=== PATIENT | female | born 1950 ===

== ENCOUNTER 2019-10-17 11:13 | Outpatient (CLI) | payer OTHER | END 2019-10-17 11:15 | disposition home or self-care (01) | LOC: MAMO-SONO 11:13 | DX: Z12.31 Encounter for screening mammogram for malignant neoplasm of breast (principal); Z87.898 Personal history of other specified conditions; M54.5 Low back pain; Z01.810 Encounter for preprocedural cardiovascular examination; E03.8 Other specified hypothyroidism; E78.89 Other lipoprotein metabolism disorders; E11.51 Type 2 diabetes mellitus with diabetic peripheral angiopathy without gangrene; E55.9 Vitamin D deficiency, unspecified; E66.8 Other obesity; G62.89 Other specified polyneuropathies; E11.42 Type 2 diabetes mellitus with diabetic polyneuropathy; I11.9 Hypertensive heart disease without heart failure ==

== ENCOUNTER → 2019-10-22 06:54 | Outpatient (CLI) | payer OTHER | END | disposition home or self-care (01) | LOC: LAB 06:54 | DX: E03.8 Other specified hypothyroidism (principal); M54.5 Low back pain; Z01.810 Encounter for preprocedural cardiovascular examination; E78.89 Other lipoprotein metabolism disorders; E11.51 Type 2 diabetes mellitus with diabetic peripheral angiopathy without gangrene; E55.9 Vitamin D deficiency, unspecified; E66.8 Other obesity; G62.89 Other specified polyneuropathies; E11.42 Type 2 diabetes mellitus with diabetic polyneuropathy; I11.9 Hypertensive heart disease without heart failure; F41.8 Other specified anxiety disorders; Z12.11 Encounter for screening for malignant neoplasm of colon ==

== ENCOUNTER 2019-10-29 09:20 | Outpatient (CLI) | payer OTHER | END 2019-10-29 09:26 | disposition home or self-care (01) | LOC: NUCLEAR 09:20 | PROVIDERS: ATTEND Internal Medicine | DX: M81.0 Age-related osteoporosis without current pathological fracture (principal); E03.8 Other specified hypothyroidism; I10 Essential (primary) hypertension; M54.5 Low back pain; Z01.810 Encounter for preprocedural cardiovascular examination; E78.89 Other lipoprotein metabolism disorders; E11.51 Type 2 diabetes mellitus with diabetic peripheral angiopathy without gangrene; E55.9 Vitamin D deficiency, unspecified; E11.9 Type 2 diabetes mellitus without complications; E66.8 Other obesity; G62.89 Other specified polyneuropathies; E11.42 Type 2 diabetes mellitus with diabetic polyneuropathy; I11.9 Hypertensive heart disease without heart failure ==

== ENCOUNTER 2019-12-19 08:54 | Outpatient (CLI) | payer OTHER | END 2019-12-19 08:55 | disposition home or self-care (01) | LOC: SONOGRAMA 08:54 | PROVIDERS: ATTEND Internal Medicine Endocrinology, Diabetes & Metabolism | DX: E04.1 Nontoxic single thyroid nodule (principal) ==

== ENCOUNTER → 2020-07-20 06:40 | Outpatient (CLI) | payer OTHER | END | disposition home or self-care (01) | LOC: LAB 06:40 | PROVIDERS: ATTEND Internal Medicine Endocrinology, Diabetes & Metabolism | DX: E03.8 Other specified hypothyroidism (principal); E11.65 Type 2 diabetes mellitus with hyperglycemia; E55.9 Vitamin D deficiency, unspecified; D64.89 Other specified anemias; E78.2 Mixed hyperlipidemia; Z12.11 Encounter for screening for malignant neoplasm of colon; C18.9 Malignant neoplasm of colon, unspecified; C53.8 Malignant neoplasm of overlapping sites of cervix uteri; C50.919 Malignant neoplasm of unspecified site of unspecified female breast ==

== ENCOUNTER 2020-10-21 06:36 | Outpatient (CLI) | payer OTHER | END 2020-10-21 06:44 | disposition home or self-care (01) | LOC: LAB 06:36 | PROVIDERS: ATTEND Internal Medicine | DX: I10 Essential (primary) hypertension (principal); M54.5 Low back pain; E78.89 Other lipoprotein metabolism disorders; E55.9 Vitamin D deficiency, unspecified; E66.8 Other obesity; G62.89 Other specified polyneuropathies; I11.9 Hypertensive heart disease without heart failure; F41.8 Other specified anxiety disorders; G47.09 Other insomnia; Z12.11 Encounter for screening for malignant neoplasm of colon; E78.2 Mixed hyperlipidemia; D64.89 Other specified anemias; D51.0 Vitamin B12 deficiency anemia due to intrinsic factor deficiency; C18.0 Malignant neoplasm of cecum; R80.8 Other proteinuria; R07.89 Other chest pain; R10.84 Generalized abdominal pain ==

== ENCOUNTER → 2020-12-01 08:55 | Outpatient (CLI) | payer OTHER | END | disposition home or self-care (01) | LOC: RAD 08:55 | PROVIDERS: ATTEND Internal Medicine | DX: I10 Essential (primary) hypertension (principal); M54.5 Low back pain; E78.89 Other lipoprotein metabolism disorders; E55.9 Vitamin D deficiency, unspecified; E66.8 Other obesity; G62.89 Other specified polyneuropathies ==

== ENCOUNTER 2021-02-02 06:39 | Outpatient (CLI) | payer OTHER | END 2021-02-02 06:40 | disposition home or self-care (01) | LOC: LAB 06:39 | PROVIDERS: ATTEND Internal Medicine | DX: I10 Essential (primary) hypertension (principal); M54.5 Low back pain; E78.89 Other lipoprotein metabolism disorders; E55.9 Vitamin D deficiency, unspecified; E66.8 Other obesity; G62.89 Other specified polyneuropathies ==

== ENCOUNTER 2021-06-10 06:44 | Outpatient (CLI) | payer OTHER | END 2021-06-10 06:50 | disposition home or self-care (01) | LOC: LAB 06:44 | PROVIDERS: ATTEND Internal Medicine | DX: I10 Essential (primary) hypertension (principal); M54.59 Other low back pain; E78.89 Other lipoprotein metabolism disorders; E55.9 Vitamin D deficiency, unspecified; E66.8 Other obesity; G62.89 Other specified polyneuropathies; C82.11 Follicular lymphoma grade II, lymph nodes of head, face, and neck; E03.8 Other specified hypothyroidism; D64.89 Other specified anemias; E11.65 Type 2 diabetes mellitus with hyperglycemia; E78.2 Mixed hyperlipidemia; N39.0 Urinary tract infection, site not specified ==

== ENCOUNTER 2021-06-29 08:29 | Outpatient (CLI) | payer OTHER | END 2021-06-29 08:30 | disposition home or self-care (01) | LOC: MAMO-SONO 08:29 | PROVIDERS: ATTEND Internal Medicine Endocrinology, Diabetes & Metabolism | DX: N64.4 Mastodynia (principal) ==

== ENCOUNTER 2021-10-06 06:47 | Outpatient (CLI) | payer OTHER | END 2021-10-06 07:11 | disposition home or self-care (01) | LOC: LAB 06:47 | PROVIDERS: ATTEND Internal Medicine Endocrinology, Diabetes & Metabolism | DX: Z12.11 Encounter for screening for malignant neoplasm of colon (principal); E11.69 Type 2 diabetes mellitus with other specified complication; D64.9 Anemia, unspecified; C18.9 Malignant neoplasm of colon, unspecified ==

== ENCOUNTER 2021-10-17 15:22 | Outpatient (CLI) | payer OTHER | END 2021-10-17 15:26 | disposition home or self-care (01) | LOC: LAB 15:22 | PROVIDERS: ATTEND Specialist | DX: Z12.9 Encounter for screening for malignant neoplasm, site unspecified (principal) ==

== ENCOUNTER 2021-12-28 06:38 | Outpatient (CLI) | payer OTHER | END 2021-12-28 14:52 | disposition home or self-care (01) | LOC: LAB 06:38 | PROVIDERS: ATTEND Internal Medicine Endocrinology, Diabetes & Metabolism | DX: D64.9 Anemia, unspecified (principal); E83.52 Hypercalcemia; E03.8 Other specified hypothyroidism; N95.1 Menopausal and female climacteric states; I10 Essential (primary) hypertension; C51.9 Malignant neoplasm of vulva, unspecified; N30.00 Acute cystitis without hematuria; A64 Unspecified sexually transmitted disease; R97.8 Other abnormal tumor markers; R79.89 Other specified abnormal findings of blood chemistry; A60.9 Anogenital herpesviral infection, unspecified; Z12.11 Encounter for screening for malignant neoplasm of colon ==

== ENCOUNTER 2022-08-18 06:43 | Outpatient (CLI) | payer OTHER | END 2022-08-18 06:44 | disposition home or self-care (01) | LOC: LAB 06:43 | PROVIDERS: ATTEND Internal Medicine Endocrinology, Diabetes & Metabolism | DX: E03.8 Other specified hypothyroidism (principal); D64.9 Anemia, unspecified; I10 Essential (primary) hypertension; E78.2 Mixed hyperlipidemia; E55.9 Vitamin D deficiency, unspecified; R10.9 Unspecified abdominal pain; E78.5 Hyperlipidemia, unspecified; R80.9 Proteinuria, unspecified; E11.9 Type 2 diabetes mellitus without complications ==